=== PATIENT | male | born 1970 | race Caucasian/White ===

== ENCOUNTER 2024-01-02 20:48 | Emergency (ER) | payer MEDICAID, SELFPAY ==
--- NOTE | ~2024-01-02 | XR_ITS ---
EXAMINATION: XR CHEST CLINICAL INFORMATION: Shortness of breath. COMPARISON: Chest radiograph dated 12/16/2018. TECHNIQUE: 2 views of the chest were obtained. FINDINGS: Minimal patchy right midlung opacities which are new when compared to the prior examination and could represent atelectasis versus early infiltrates. No pleural effusion or pneumothorax. Stable cardiomediastinal silhouette. No acute osseous abnormality. XR/XR chest 2V IMPRESSION: Minimal patchy right midlung opacities which are new when compared to the prior examination and could represent atelectasis versus early infiltrates.
[2024-01-02 20:52] VITALS: BP 130/90; PULSE 116; O2SAT 96
--- NOTE | 2024-01-02 20:55 | ED_ITS ---
HPI - General Adult General Chief complaint: Upper Respiratory Symptoms Stated complaint: sick x2 weeks, fam has walking pneu, sob, cough Related Data Allergies Allergy/AdvReac Type Severity Reaction Status Date / Time codeine Allergy Unknown Verified 01/02/24 21:15 [facility] Social History Social History Advance Directives: No Advance Directives Information Provided: No Physical Exam ED Vital Signs: Vital Signs - 24 hr 01/02/24 21:16 Temperature 97.2 F Pulse Rate 103 H Respiratory Rate 18 Blood Pressure 120/88 Pulse Oximetry 94 Oxygen Delivery Method Room Air BMI result Body Mass Index 21.1 Course Course Course Narrative: This is a rapid medical exam: Additional HPI, ROS, PE not included below will be deferred to primary provider. Patient is a 53-year-old male with history of MIx2 with stents presenting to the emergency department via EMS with complaint of shortness of breath worse with coughing. States other family members at home are sick with ?walking pneumonia. ? Plan: EKG, labs, chest x-ray Discharge Plan Discharge Clinical Impression: Shortness of breath Patient Disposition: Left W/O Completing Treatment Discharge Date/Time: 01/03/24 00:42
[2024-01-02 21:16] VITALS: BP 120/88; PULSE 103; RESP 18; TEMP 36.2; O2SAT 94; BMI 21.1
--- OUTSIDE RECORDS SUMMARY | 2024-01-03 00:38 | XMS_ITS | Continuity of Care Document ---
Author Name Unknown Organization [facility] Address [address] [place] [address]- Care Team Providers Care Wood Cabinet Finisher Name Role Phone Jose Miguel Escamilla MD Primary Care Physician [phone] Encounter [facility] Date(s): 09/04/22 - 12/30/22 [facility] [address] [place] [address]- Attending Physician: Ro Perez NP Admitting Physician: Ro Perez NP Referring Physician: Jose Miguel Escamilla MD Allergies, Adverse Reactions, Alerts Substance Reaction Severity Status codeine Active Medications Aspirin Enteric Coated 81 mg oral delayed release tablet 1 tablet = 81 mg, By Mouth, Daily, # 90 tablet, 3 Refills, Maintenance, 08/29/22 11:03:00 EDT, [facility], Partial fill upon patient request if the prescription is for a schedule IIopioid drug., 168, cm, 08/29/22 10:08:00 EDT, Height, 5... Start Date: 08/29/22 Status: Ordered atorvastatin 80 mg oral tablet 1 tablet = 80 mg, By Mouth, Daily at bedtime, # 90 tablet, 3 Refills, Maintenance, 08/29/22 11:04:00 EDT, Tablet, [facility], Partial fill upon patient request if the prescription is for a schedule II opioid drug., 168, cm, 08/29/22 10:0... Start Date: 08/29/22 Status: Ordered carvedilol 3.125 mg oral tablet 3.125 mg, 1, tablet, By Mouth, 2 times a day, # 180 tablet, Refills 2, Tot. Refills 2, Maintenance,08/29/22 11:04:00 EDT, Route to Pharmacy Electronically, [facility], Partial fillupon patient request if the prescription is for a sched... Start Date: 08/29/22 Status: Ordered clopidogrel 75 mg oral tablet 75 mg, 1, tablet, By Mouth, Daily, # 90 tablet, Refills 3, Tot. Refills 3, Maintenance, 08/29/22 11:04:00 EDT, Route to Pharmacy Electronically, [facility], Partial fill upon patient request if the prescription is for a schedule II opioi... Start Date: 08/29/22 Status: Ordered omeprazole 20 mg oral delayed release tablet 1 tablet = 20 mg, By Mouth, Daily, # 90 tablet, 3 Refills, Maintenance, 08/29/22 11:05:00 EDT, CR Tablet, [facility], Partial fill upon patient request if the prescription is for a schedule II opioid drug., 168, cm, 08/29/22 10:08:00 EDT... Start Date: 08/29/22 Status: Ordered Social History Social History Type Response Smoking Status Current some day smo ker; Tobacco user in household: No; Type: Cigarettes entered on: 10/04/15 Sex Patient Care team information Care Team Personnel Name: Jose Miguel Escamilla MD Position: [facility] Outreach Member Role: PCP Address: Address: [address] [place] [address]- Name: Emelyn Iraheta RN Position: S RN Member Role: Primary Care Nurse Name: Linh Cuevas RN Position: S RN Supv Member Role: Primary Care Nurse Name: Elisabet Adan RN Position: S RN Member Role: Primary Care Nurse Care Team Related Persons Name: ADRIANA LAUGHLIN Address: home [address] [place] [address]
--- OUTSIDE RECORDS SUMMARY | 2024-01-03 00:39 | XMS_ITS | Patient Health Record ---
Author Name Unknown Organization [facility] Address [address], [place] [id number] Care Team Providers Care Cause Analyst Name Role Phone [facility] Primary Care Provide r Unavailable ALLERGIES Allergen (clinical drug ingredient) Drug/Non Drug Allergy documented on EMR Reaction Allergy Type Onset Date Status codeine codeine Unknown Drug Allergy Active REASON FOR REFERRAL No Information MEDICATIONS Medication SIG (Take, Route, Fr equency, Duration) Notes Start Date End Date Status Vistaril pamoate 25 mg 1 cap(s) orally 4 times a day for 30 day(s) 02/10/2014 Active PROzac 20 mg 1 cap(s) orally once a day for 30 day(s) 02/10/2014 Active SOCIAL HISTORY Tobacco Use: Social History Observation Description Date Details (start date - stop date) Current Smoker NA - NA Sex Assigned At : Social History Observation Description Sex Assigned At Unknown Tobacco Use Assessment MU Question Answer Notes What is your current smoking status? current smoker How often do you smoke? every day How many cigarettes a day do you smoke? 21-30 How soon after you wake up d o you smoke your first cigarette? 31-60 minutes Are you interested in quitting? thinking about q uitting quit a few years ago, resumed after 4 months. Quit cold turkey in past. Is working on cutting down Patient counseled on the carito reeds of tobacco use and advised to quit: 01/21/2014 PROBLEMS Problem Type ICD Code Onset Dates Problem Status W/U Status Risk SNOMED Code Notes Problem Depression with anxiety (300.4) Active confirmed Mixed anxiet y and depressive disorder (475127785) Problem Tobacco use disorder (305.1) Active confirmed Tobacco use (288862658) PLAN OF TREATMENT No Information Insurance Providers Payer Name Payer Address Payer Phone Subscriber Number Group Number Insured Name Patient Relationship to Insured Coverage Start Date Coverage End Date [facility] Plan [address] [address] [place] [address] [id number] Isrrael Sidhu Self - patient is the insured [place] Medicaid Standard [address] [place] [phone] [id number] Isrrael Sidhu Self - patient is the insured [facility] [address] [place] [address] Nahum Isrrael Self - patient is the insured MEDICAL (GENERAL) HISTORY Medical History History ICD Code ulcers Scarlet Fever and he almost MENTAL DISOR NOS OTH DIS Hospitalization History Reason Date(Month/Year) scarlet fever 2 yo
--- OUTSIDE RECORDS SUMMARY | 2024-01-03 00:39 | XMS_ITS | Continuity of Care Document ---
Author Name Unknown Organization [facility] ter Address [address] [place] [address]- Care Team Providers Care Smt Technician Name Role Phone Not on Staff, PCP Primary Care Physician Unavail able Encounter [facility] [place] Date(s): 10/16/23 - 10/16/[address] [address]- Discharge Disposition: A-D/C AMA Attending Physician: Richard Dumont MD Admitting Physician: Richard Dumont MD Referring Physician: Not on Staff, Referring MD Allergies, Adverse Reactions, Alerts Substance Reaction [...] 10:08:00 EDT... Start Date: 08/29/22 Status: Ordered Problem List Condition Confirmation Course Effective Dates Status Health St atus Informant Underweight Confirmed Active Results Radiology Reports * Exam Date Time Procedure Performing Provider Status 10/16/23 9:23 AM Chest 2 Views Frontal and Lat Yanique Santoyo; Auth (Verified) Notes: (Chest 2 Views Frontal and Lat) Reason For Exam: Chest Pain;Other: RESULT: Chest 2 Views Frontal and Lat Chest 2 Views Frontal and Lat Hx of Present Illness: chest pain x a few hours . history of PA with stents; Reason: Other:; Chest Pain; Clinical Question(s): Other: COMPARISON: 07/28/2022 FINDINGS: LINES AND TUBES: None. LUNGS AND PLEURA: Clear lungs. Normal pulmonary vascularity. No pleural effusion. No pneumothorax. HEART, MEDIASTINUM AND MING: Heart is normal in size. Coronary stents noted. Normal mediastinal and hilar contour. BONES AND SOFT TISSUES: No acute abnormality. IMPRESSION: No acute abnormality. WSN: [id number] Ordering Physician: Myke Chery Dictated By: Messi Lugo MD Dictated Date/Time: 10/16/23 9:48 am Reviewed By: Messi Lugo MD Signed By: Messi Lugo MD Signed Date/Time: 10/16/23 9:48 am Transcribed By: DORIAN Transcribed Date/Time: 10/16/23 9:43 am Vital Signs Most recent to oldest [Reference Range]: 1 2 3 Height 168 cm (10/16/23 2:57 PM) 168 cm (10/16/23 2:44 PM) 168 cm (10/16/23 11:49 AM) Weight 50 kg (10/16/23 2:57 PM) Oxygen Saturation [94-100 %] 95 % (10/16/23 2:44 PM) 97 % (10/16/23 11:52 AM) 98 % (10/16/23 11:49 AM) Pulse Rate [55-90 bpm] 70 bpm (10/16/23 2:57 PM) 70 bpm (10/16/23 2:44 PM) 79 bpm (10/16/23 11:52 AM) Body Mass Index [18.5-24.99 kg/m2] 17.72 kg/m2 *L* (10/16/23 2:57 PM) Blood Pressure [90-138/55-84 mm Hg] 131/114mm Hg (10/16/23 2:57 PM) 131/114mm Hg (10/16/23 2:44 PM) 111/82mm Hg (10/16/23 11:52 AM) Respiratory Rate [16-30 br/min] 18 br/min (10/16/23 2:57 PM) 18 br/min (10/16/23 2:44 PM) 18 br/min (10/16/23 11:52 AM) Temperature [96.8-100.4 DegF] 97.6 DegF (10/16/23 2:57 PM) 97.6 DegF (10/16/23 2:44 PM) 98.7 DegF (10/16/23 11:52 AM) Mode of Delivery (Oxygen) Room air (10/16/23 2:44 PM) Room air (10/16/23 11:52 AM) Room air (10/16/23 11:49 AM) Blood pressure sites Arm, right (10/16/23 2:57 PM) Arm, right (10/16/23 2:44 PM) Arm, left (10/16/23 11:52 AM) Temperature Route Oral (10/16/23 2:57 PM) Oral (10/16/23 2:44 PM) Oral (10/16/23 11:52 AM) Dry Weight 50 kg (10/16/23 2:57 PM) 50 kg (10/16/23 11:49 AM) 50 kg (10/16/23 8:10 AM) Weight Obtained Via Patient/family state d (10/16/23 2:57 PM) Dry Weight Obtained Via Patient/family s tated (10/16/23 8:10 AM) Social History Social History Type Response Smoking Status Current some day smo ker; Tobacco user in household: No; Type: Cigarettes entered on: 10/04/15 Sex Admission evaluation note * Richard Dumont MD: PERFORM Event Display: Admission Note Authored Date: [id number] Patient: ??MEENA LAUGHLIN ? Age:??52 Years?Sex:??Male?:??1970?? History of Present Illness 52 M with CAD s/p multiple MIs, HFrEF presents??with chest pain. ?? Pain started??this morning, difficult to characterize but reminded him of prior PA pain, pain has been constant since onset.??No associated shortness of breath, dizziness, nausea, vomiting. ??He does endorse an intermittent dry smoker's cough that began yesterday, but denies fever, chills, nasal congestion, rhinorrhea, sore throat or headache. ??No pain or swelling in his legs. ??No personalor family history of blood clots. ??Patient was given 2 doses of sublingual nitroglycerin by EMS, after the second dose he felt chills and had a witnessed syncopal event. ?? Of note patient ran out of his clopidogrel 3 days ago. ?? Of note, he had bare metal stent to proximal LAD in 2014, admitted 07/2022 with inferior STEMI with??culprit lesions in the RCA and he received 2 stents, a 2.5 x 12 mm??(Xience) in the distal RCA, dimas 2.75 x 34 mm??(Lester) in the mid RCA.??Echocardiogram revealed LVEF 35%. ?? In the ED: Afebrile??BP 89/62 HR 69 CBC and basica chemistry unremarkable Trop neg x2 BNP < 36 EKG without ischemia CXR negative He was given asa 324 and admitted ?? ROS: As above, rest of full review negative. ?? Social: Lives independently Objective Temperature?97.6 ?(15:00) Systolic Blood Pressure?131 ?(15:00) Diastolic Blood Pressure?114 ?(15:00) Pulse?70 ?(15:00) SpO2?95 ?(14:46) Respiratory Rate?18 ?(15:00) ?? Physical Exam GEN: Comfortable in bed HEENT: Moist membranes HEART: Warm extremities LUNGS: Breathing comfortably room air ABD: Soft, nontender : No hwang EXT: Warm, no edema NEURO: Alert, oriented x3 PSYCH: Calm and cooperative ? ECHO 08/09: Summary ??The left ventricular size is normal. Left ventricular wall thickness is ??normal. The left ventricular ejection fraction is 35-40%. There is mild ??global hypokinesis of the left ventricle. Inferobasilar and basilar ??inferolateral akinesis. Mid/basilar septal akinesis. There is no doppler ??evidence of increased filling pressures. ??The aortic valve is probably trileaflet . There is no aortic stenosis. There ??is mild aortic regurgitation. ??The right ventricle is poorly visualized. ??Right ventricular systolic function appears preserved. ??There is no significant pericardial effusion. ?? Assessment/Plan 52 M with CAD s/p multiple MIs, HFrEF presents??with chest pain. ?? CAD in [place] artery (I25.10):?? Chest pain (R07.9):? Suggestive chest pain with high risk history. Trops and EKG negative. Ran out of Plavix, active smoker, has been lost to followup. - nuclear stress ordered - [employer] consulted electronicall - cont asa and Plavix, statin, carvedilol ?? CHF with??EF 35-40%??(I50.9):?? Appears euvolemic. - cont carvedilol ? DIET -regular CODE - full DVT - low risk?? Histories Past Medical History/Problem List Active Problems??(1) Underweight ? Medications Home Medications Aspirin (Aspirin Enteric Coated 81 mg oral delayed release tablet)?1?tab(s)?81?Milligram?By Mouth?Daily Atorvastatin (atorvastatin 80 mg oral tablet)?1?tab(s)?80?Milligram?By Mouth?Daily at bedtime Carvedilol (carvedilol 3.125 mg oral tablet)?3.125?Milligram?1?tablet?By Mouth?2 times a day Clopidogrel (clopidogrel 75 mg oral tablet)?75?Milligram?1?tablet?By Mouth?Daily Omeprazole (omeprazole 20 mg oral delayed release tablet)?1?tab(s)?20?Milligram?By Mouth?Daily ? EKG study * Event Display: ECG 12-Lead Authored Date: Please click on pdf link to open report * Event Display: ECG 12-Lead Authored Date: Ventricular Rate: 61 BPM Atrial Rate: 61 BPM P-R Interval: 146 ms QRS Duration: 76 ms Q-T Interval: 402 ms QTC Calculation(Bazett): 404 ms P [place]: 69 degrees R [place]: 67 degrees T [place]: 69 degrees Normal sinus rhythm Normal ECG When compared with ECG of 16-OCT-2023 08:08, MANUAL COMPARISON REQUIRED, DATA IS UNCONFIRMED Confirmed by ANGELICA LIZAMA MD ([id number]) on 10/16/2023 1:44:36 PM [place]: ANGELICA LIZAMA MD * Event Display: ECG 12-Lead Authored Date: Please click on pdf link to open report * Event Display: ECG 12-Lead Authored Date: Ventricular Rate: 69 BPM Atrial Rate: 69 BPM P-R Interval: 152 ms QRS Duration: 70 ms Q-T Interval: 384 ms QTC Calculation(Bazett): 411 ms P [place]: 61 degrees R [place]: 69 degrees T [place]: 69 degrees Normal sinus rhythm Septal infarct , age undetermined Abnormal ECG When compared with ECG of 29-JUL-2022 15:25, No significant change was found Confirmed by ANGELICA LIZAMA MD ([id number]) on 10/16/2023 1:43:55 PM [place]: ANGELICA LIZAMA MD [facility] Progress note * Berna Baptiste RN: PERFORM, SIGN, VERIFY Event Display: Progress Note Hospital Authored Date: Patient: MEENA LAUGHLIN Age: 52 years Sex: Male : 1970 Associated Diagnoses: None Author: Berna Baptiste RN Findings Narrative/Incidental Patietn admitted to unit. Oriented to room and call light. Denies any chest pain or discomfort at this time Tele with SR.. Note * Richard Dumont MD: PERFORM Event Display: Discharge/Transfer Note Hospital Authored Date: Patient: ??MEENA LAUGHLIN ? Age:??52 Years?Sex:??Male?:??1970?? The patient eloped from [place] [facility] prior to receiving stress test or obtaining a refill of his Plavix. * Slim Oliver RN: PERFORM Event Display: Discharge/Transfer Note Hospital Authored Date: Nursing Discharge Note Entered On: 10/16/2023 16:37 EST Performed On: 10/16/2023 16:36 EST by Slim Oliver RN Nursing Discharge Note 2 Discharge Time : 10/16/2023 16:13 EST Discharge Level of Care at Discharge : Left Against Medical Advice Patient Left Unit Via : Ambulatory Patient Accompanied Off Unit with : Responsible adult DC Instructions Provided & Signed by Pt : No Patient Understands D/C Instructions : No Patient Instructions Discharge Signed : No Did Pt have Specialty Bed or Wound Vac : No Slim Oliver RN - 10/16/2023 16:36 EST Patient Care team information Care Team Personnel Name: Slim Oliver RN Position: S RN Member Role: Primary Care Nurse Name: Not on Staff, PCP Position: [facility] Physician (General Medicine) Member Role: PCP Name: Elisabet Adan RN Position: [facility] RN Member Role: Primary Care Nurse Name: *Telly HEATH Attending Position: [facility] ED Medicine MD Name: Dave Andrew Position: [facility] Associate Professional Member Role: ED Physician Bulk Plant Supervisor Address: Address: [address] [place] [address] Emergency [place], [place] [address] Name: Margareth Frey Position: [facility] ED TA [facility] Member Role: Grocery Deliverer Name: Daisha Celestin RN Position: [facility] ED RN W/OE and Tasks Member Role: Patient Care Provider Care Team Related Persons Name: TRUMAN ADRIANA Address: [address] [address]
--- OUTSIDE RECORDS SUMMARY | 2024-01-03 00:39 | XMS_ITS | Continuity of Care Document ---
Author Name Unknown Organization [facility] ter Address [address] [place] [address]- Care Team Providers Care Four Slide Machine Setter Name Role Phone Jose Miguel Escamilla MD Primary Care Physician [phone] Encounter [facility] Date(s): 07/28/22 - 07/30/[address] [address]- Encounter Diagnosis Non-STEMI (non-ST elevated myocardial infarction)(Final) - 07/28/22 Non-STEMI (non-ST elevated myocardial infarction)(Final) - 07/28/22 Discharge Disposition: A-D/C Home Attending Physician: Richard Leggett MD Admitting Physician: Richard Leggett MD Referring Physician: Not on Staff, Referring MD Allergies, Adverse Reactions, Alerts Substance Reaction Severity Status codeine Active Medications Aspirin Enteric Coated 81 mg oral delayed release tablet 1 tablet = 81 mg, By Mouth, Daily, # 30 tablet, 0 Refills, Maintenance, 07/30/22 12:27:00 EDT, [facility], Partial fill upon patient request if the prescription is for a schedule IIopioid drug., 168, cm, 07/30/22 2:46:00 EDT, Height, 55... Start Date: 07/30/22 Status: Ordered atorvastatin 80 mg oral tablet 1 tablet = 80 mg, By Mouth, Daily at bedtime, # 30 tablet, 0 Refills, Maintenance, 07/30/22 12:28:00 EDT, Tablet, [facility], Partial fill upon patient request if the prescription is for a schedule II opioid drug., 168, cm, 07/30/22 2:46... Start Date: 07/30/22 Status: Ordered carvedilol 3.125 mg oral tablet 3.125 mg, 1, tablet, By Mouth, 2 times a day, # 60 tablet, Refills 0, Tot. Refills 0, Maintenance, 07/30/22 12:28:00 EDT, Route to Pharmacy Electronically, [facility], Partial fill upon patient request if the prescription is for a schedu... Start Date: 07/30/22 Status: Ordered clopidogrel 75 mg oral tablet 75 mg, 1, tablet, By Mouth, Daily, # 30 tablet, Refills 0, Tot. Refills 0, Maintenance, 07/30/22 12:31:00 EDT, Route to Pharmacy Electronically, [facility], Partial fill upon patient request if the prescription is for a schedule II opioi... Start Date: 07/30/22 Status: Ordered omeprazole 20 mg oral delayed release tablet 1 tablet = 20 mg, By Mouth, Daily, # 30 tablet, 0 Refills, Maintenance, 07/30/22 12:29:00 EDT, CR Tablet, [facility], Partial fill upon patient request if the prescription is for a schedule II opioid drug., 168, cm, 07/30/22 2:46:00 EDT,... Start Date: 07/30/22 Status: Ordered Results Radiology Reports * Exam Date Time Procedure Performing Provider Status 07/28/22 3:05 PM Chest Portable Leah Payne; Pelon h (Verified) Notes: (Chest Portable) Reason For Exam: Chest Pain;Other: RESULT: Chest Portable AP upright portable chest dated July 28, 2022 at 1458 hours. Comparison films are from March 04, 2019. HISTORY: Chest pain. FINDINGS: The cardiac silhouette is within normal limits for size. Hilar and mediastinal structuresare unremarkable. No airspace infiltrate or pleural effusion is identified. Visualized osseous structures are unremarkable. IMPRESSION: No evidence of acute pulmonary disease. Examination 90[address]. Thank you for allowing me to participate in the care of this patient. WSN: [id number] Ordering Physician: Kait Aaron Dictated By: Bunny Gomez MD Dictated Date/Time: 07/28/22 3:18 pm Reviewed By: Bunny Gomez MD Signed By: Bunny Gomez MD Signed Date/Time: 07/28/22 3:18 pm Transcribed By: DORIAN Transcribed Date/Time: 07/28/22 3:18 pm Vital Signs Most recent to oldest [Reference Range]: 1 2 3 Height 168 cm (07/30/22 2:46 AM) 168 cm (07/29/22 7:45 PM) 168 cm (07/29/22 3:19 PM) Weight 57.8 kg (07/30/22 2:46 AM) 59.3 kg (07/29/22 4:48 AM) 58 kg (07/28/22 8:06 PM) Oxygen Saturation [94-100 %] 97 % (07/30/22 7:00 AM) 98 % (07/30/22 2:46 AM) 98 % (07/29/22 7:45 PM) Pulse Rate [55-90 bpm] 82 bpm (07/30/22 7:00 AM) 72 bpm (07/30/22 2:46 AM) 65 bpm (07/29/22 7:45 PM) Body Mass Index [18.5-24.99] 20.48 (07/30/22 2:46 AM) 20.55 (07/28/22 8:06 PM) Blood Pressure [90-138/55-84 mm Hg] 123/98mm Hg (07/30/22 7:00 AM) 128/71mm Hg (07/30/22 2:46 AM) 117/95mm Hg (07/29/22 7:45 PM) Respiratory Rate [16-30 br/min] 18 br/min (07/30/22 7:00 AM) 20 br/min (07/30/22 2:46 AM) 20 br/min (07/29/22 7:45 PM) Temperature [96.8-100.4 DegF] 97.8 DegF (07/30/22 7:00 AM) 97.6 DegF (07/30/22 2:46 AM) 97.7 DegF (07/29/22 7:45 PM) Mode of Delivery (Oxygen) Room air (07/30/22 7:00 AM) Room air (07/30/22 2:46 AM) Room air (07/29/22 7:45 PM) Blood pressure sites Arm, right (07/30/22 7:00 AM) Arm, right (07/30/22 2:46 AM) Arm, right (07/29/22 7:45 PM) Temperature Route Oral (07/30/22 7:00 AM) Oral (07/30/22 2:46 AM) Oral (07/29/22 7:45 PM) Dry Weight 55 kg (07/28/22 8:06 PM) Weight Obtained Via Bed scale (07/30/22 2:46 AM) Bed scale (07/29/22 4:48 AM) Bed scale (07/28/22 8:06 PM) Dry Weight Obtained Via Patient/family s tated (07/28/22 8:06 PM) Social History Social History Type Response Smoking Status Current some day smo ker; Tobacco user in household: No; Type: Cigarettes entered on: 10/04/15 Sex Portable XR Chest Views * BHSPowerscribe , CIS S: TRANSCRIBE Bunny Gomez MD: VERIFY Event Display: Result: Authored Date: [id number] AP upright portable chest dated July 28, 2022 at 1458 hours. Comparison films are from March 04, 2019. HISTORY: Chest pain. FINDINGS: The cardiac silhouette is within normal limits for size. Hilar and mediastinal structuresare unremarkable. No airspace infiltrate or pleural effusion is identified. Visualized osseous structures are unremarkable. IMPRESSION: No evidence of acute pulmonary disease. Examination 54272. Thank you for allowing me to participate in the care of this patient. WSN: [id number] Ordering Physician: Kait Aaron Dictated By: Bunny Gomez MD Dictated Date/Time: 07/28/22 3:18 pm Reviewed By: Bunny Gomez MD Signed By: Bunny Gomez MD Signed Date/Time: 07/28/22 3:18 pm Transcribed By: DORIAN Transcribed Date/Time: 07/28/22 3:18 pm Care Team Personnel Name: Jose Miguel Escamilla MD Address: [address] [place] [address]
--- OUTSIDE RECORDS SUMMARY | 2024-01-03 00:39 | XMS_ITS | Continuity of Care Document ---
Author Name Unknown Organization [facility] Address [address] [place] [id number]- Care Team Providers Care Laundry Machine Tender Name Role Phone Jose Miguel Escamilla MD Primary Care Physician Encounter [facility] Date(s): 11/29/22 - 01/05/23 [facility] [address] [place] [id number]- Attending Physician: Dallas Solo NP Admitting Physician: Dallas Solo NP Referring Physician: Jose Miguel Escamilla MD [...] Personnel Name: Jose Miguel Escamilla MD Position: [facility] Outreach Member Role: PCP Address: Address: [address] [place] [phone]- Name: Emelyn Iraheta RN Position: S RN Member Role: Primary Care Nurse Name: Linh Cuevas RN Position: S RN Supv Member Role: Primary Care Nurse Name: Elisabet Adan RN Position: S RN Member Role: Primary Care Nurse Care Team Related Persons Name: ADRIANA LAUGHLIN Address: home [address] [place] [id number]
--- OUTSIDE RECORDS SUMMARY | 2024-01-03 00:39 | XMS_ITS | Continuity of Care Document ---
Author Name Unknown Organization [facility] Address [address] [place] [id number]- Care Team Providers Care International Marketing Manager Name Role Phone Jose Miguel Escamilla MD Primary Care Physician [place] [facility] [place]/23 [facility] [address] [place] [id number]- Attending Physician: Adeline Myers Admitting Physician: Adeline Myers Referring Physician: AdmtrAdeline Allergies, Adverse Reactions, Alerts Substance Reaction Severity [...] No; Type: Cigarettes entered on: 10/04/15 Sex Note * Event Display: Cardiovascular Result Scanned Authored Date: * Event Display: Non BH Lab Results Authored Date: * Event Display: Non BH Lab Results Authored Date: Patient Care team information Care Team Personnel Name: Jose Miguel Escamilla MD Position: [facility] Outreach Member Role: PCP Address: Address: [address] [place] [phone]- Name: Emelyn Iraheta RN Position: S RN Member Role: Primary Care Nurse Name: Linh Cuevas RN Position: S AVA Supv Member Role: Primary Care Nurse Name: Elisabet Adan RN Position: S RN Member Role: Primary Care Nurse Care Team Related Persons Name: ADRIANA LAUGHLIN Address: [address] [address]
== END 2024-01-03 00:42 | disposition left against medical advice (07) ==
LOC: HO.ED 01-03 00:36
PROVIDERS: Emergency Provider Emergency Medicine
DX: R06.02 Shortness of breath (principal); R05.9 Cough, unspecified
CPT/HCPCS: 71046; 99281; 99283

== ENCOUNTER 2025-04-14 05:06 | Emergency (ER) | payer MEDICAID, SELFPAY ==
--- NOTE | 2025-04-14 | ECG_ITS ---
Test Reason : CP Blood Pressure : */* mmHG Vent. Rate : 97 BPM Atrial Rate : 97 BPM P-R Int : 160 ms QRS Dur : 80 ms QT Int : 328 ms P-R-T Axes : 53 63 62 degrees QTcB Int : 416 ms Normal sinus rhythm Normal ECG When compared with ECG of 16-Dec-2018 20:28, No significant change was found Referred By: Generic ED Physician Electronically Signed By:
--- NOTE | ~2025-04-14 | XR_ITS ---
CLINICAL HISTORY: cp 1 view chest x-ray Comparison: CR/[place]/SR - XR CHEST 2V - 01/02/24 21:02 EST Findings: The lungs are clear. Normal size heart. No acute fracture. IMPRESSION: 1. No acute findings. This document has been electronically signed by: Aline Duron MD on 04/14/2025 08:46:39
[2025-04-14 05:07] VITALS: BP 120/90; BP 136/90; PULSE 101; PULSE 120; RESP 17; TEMP 36.8; O2SAT 92; O2SAT 95; BMI 23.8
[2025-04-14 05:34] LABS: MANUAL DIFF FLAG NO
[2025-04-14 05:47] LABS: Basophils Percent Auto 0.3 % (0-2); Hematocrit 49.9 % (42.0-52.0); Hemoglobin 17.3 g/dl (14.0-18.0); Imm Gran Abs Auto 0.02 X10*3/uL (0.00-0.03); Imm Gran Pct Auto 0.5 % (0.0-0.4); Lymphocytes Absolute Auto 0.2 X10*3/uL (1.2-4.9); Lymphocytes Percent Auto 6.4 % (20-40); Mean Corpuscular HGB Conc 34.7 g/dl (31.0-36.0); Mean Corpuscular Hemoglobin 30.5 pg (27.0-33.0); Mean Corpuscular Volume 87.9 fL (80.0-98.0); Mean Platelet Volume 9.6 fL (9.4-12.4); Monocytes Absolute Auto 0.6 X10*3/uL (0.1-1.2); Monocytes Percent Auto 14.9 % (2-11); Neutrophils Absolute Auto 2.9 x10*3/uL (2.0-8.3); Neutrophils Percent Auto 77.9 % (45-73); Platelet Count 180 X10*3/uL (160-400); Red Blood Count 5.68 X10*6/uL (4.60-5.80); Red Cell Distribution Width 12.3 % (11.0-16.0); White Blood Count 3.8 X10*3/uL (4.8-10.8)
[2025-04-14 05:56] LABS: Troponin-I High Sensitivity 4.6 ng/L (<3.5-35.0)
[2025-04-14 05:58] LABS: Alanine Aminotransferase 31 U/L (0-40); Albumin Level 4.6 g/dL (3.5-5.0); Alkaline Phosphatase 116 U/L (39-117); Anion Gap 17 (12-20); Aspartate Amino Transferase 23 U/L (5-37); Bilirubin Total 0.6 mg/dL (0.0-1.0); Blood Urea Nitrogen 9 mg/dL (9-16); Calcium 9.2 mg/dL (8.4-10.2); Carbon Dioxide 23 mmol/L (22-29); Chloride 100 mmol/L (96-108); Creatinine Clr Calc Pharmacy 84.6; Estimated Glomerular Filt Rate > 60; Glucose Random 104 mg/dL (60-115); Potassium 3.8 mmol/L (3.3-5.1); Sodium 136 mmol/L (135-145); Total Protein 7.3 g/dL (6.5-8.0)
[2025-04-14 06:11] LABS: Influenza A PCR NEGATIVE (Negative); Influenza B PCR NEGATIVE (Negative); Resp Syncy Virus RNA Qual PCR NEGATIVE (Negative); SARS COV2 PCR INHOUSE POSITIVE (Negative)
--- OUTSIDE RECORDS SUMMARY | 2025-04-14 06:29 | XMS_ITS | Continuity of Care Document ---
Author Organization [facility] Address [address] [place] [phone]- Care Team Providers Care Hack Driver Name Role Phone Not on Staff, PCP Primary Care Physician Unavail able Encounter [facility] [place] Date(s): 04/08/25 - 04/08/[address] [phone]- Encounter Diagnosis Chest pain(Final) - 04/09/25 Discharge Disposition: A-D/C Home Attending Physician: Teo Chun MD Admitting Physician: Teo Chun MD Referring Physician: Not on Staff, Referring MD Encounter Type: Disch ES Allergies, Adverse Reactions, Alerts Substance Criticality Severity Reaction Reaction Severity Status codeine Active Medications Aspirin Enteric Coated 81 mg oral delayed release tablet 1 tablet = 81 mg, By Mouth, Daily, MUST ATTEND 05/27/24 APPT FOR MORE REFILLS, # 14 tablet, 0 Refills, Maintenance, 05/14/24 12:36:00 PM EDT, [facility], Partial fill upon patient request if the prescription is for a schedule II opioid drug., 168, cm, 10/16/23 14:57:00 EST, Height, 50, kg, 10/16/23 14:57:00 EST, Dry Weight Start Date: 05/14/24 Stop Date: 05/28/24 Status: Ordered Quantity: 14.0 Unit: tablet Repeat number: 1 atorvastatin 80 mg oral tablet 1 tablet = 80 mg, By Mouth, Daily at bedtime, MUST ATTEND 05/27/24 APPT FOR MORE REFILLS, # 14 tablet, 0 Refills, Maintenance, 05/14/24 12:40:00 PM EDT, Tablet, [facility], Partial fill upon patient request if the prescription is for a schedule II opioid drug., 168, cm, 10/16/23 14:57:00 EST, Height, 50, kg, 10/16/23 14:57:00 EST, Dry Weight Start Date: 05/14/24 Stop Date: 05/28/24 Status: Ordered Quantity: 14.0 Unit: tablet Repeat number: 1 carvedilol 6.25 mg oral tablet 6.25 mg, 1, tablet, By Mouth, 2 times a day, # 180 tablet, Refills 0, Tot. Refills 0, Maintenance, 05/27/24 3:40:00 PM EDT, Route to Pharmacy Electronically, [facility], Partial fillupon patient request if the prescription is for a schedule II opioid drug., 168, cm, 05/27/24 15:17:00 EDT, Height, 50, kg, 10/16/23 14:57:00 EST, Dry Weight Start Date: 05/27/24 Status: Ordered Quantity: 180.0 Unit: tablet Repeat number: 1 lisinopril 2.5 mg oral tablet 2.5 mg, 1, tablet, By Mouth, Daily, # 90 tablet, Refills 0, Tot. Refills 0, Maintenance, 05/27/24 3:40:00 PM EDT, Route to Pharmacy Electronically, [facility], Partial fill upon patient request if the prescription is for a schedule II opioid drug., 168, cm, 05/27/24 15:17:00 EDT, Height, 50, kg, 10/16/23 14:57:00 EST, Dry Weight Start Date: 05/27/24 Status: Ordered Quantity: 90.0 Unit: tablet Repeat number: 1 omeprazole 20 mg oral delayed release tablet 1 tablet = 20 mg, By Mouth, Daily, # 90 tablet, 3 Refills, Maintenance, 08/29/22 11:05:00 AM EDT, CR Tablet, [facility], Partial fill upon patient request if the prescription is fora schedule II opioid drug., 168, cm, 08/29/22 10:08:00 EDT, Height, 55, kg, 07/28/22 20:09:00 EDT, Dry Weight Start Date: 08/29/22 Status: Ordered Quantity: 90.0 Unit: tablet Repeat number: 4 Results Radiology Reports * Exam Date Time Procedure Performing Provider Status 04/08/25 8:57 PM Chest 2 Views Frontal and Lat Houston Isak; Auth (Verified) Notes: (Chest 2 Views Frontal and Lat) Reason For Exam: Chest Pain;Other: RESULT: Chest 2 Views Frontal and Lat Chest 2 Views Frontal and Lat Hx of Present Illness: Chest Pain--Pt reports intermittent, left sided CP, nonradiating that started around 1500 this afternoon. History of HI and stent placement.; Reason: Other:; Chest Pain; Clinical Question(s): Other: COMPARISON: 10/16/2023 FINDINGS: LINES AND TUBES: None. LUNGS AND PLEURA: Elevated right hemidiaphragm. Clear lungs. Normal pulmonary vascularity. No pleural effusion. No pneumothorax. HEART, MEDIASTINUM AND MING: Heart is normal in size. Normal mediastinal and hilar contour. BONES AND SOFT TISSUES: No acute abnormality. IMPRESSION: No acute abnormality. WSN: [id number] Ordering Physician: Theodore Haider Dictated By: Lalo Julian MD Dictated Date/Time: 04/08/25 9:07 pm Reviewed By: Lalo Julian MD Signed By: Lalo Julian MD Signed Date/Time: 04/08/25 9:07 pm Transcribed By: DORIAN Transcribed Date/Time: 04/08/25 9:06 pm Vital Signs Most recent to oldest [Reference Range]: 1 2 Height 168 cm (04/08/25 7:22 PM) Weight 63 kg (04/08/25 7:22 PM) Oxygen Saturation [94-100 %] 99 % (04/08/25 7:52 PM) 99 % (04/08/25 7: PM) Pulse Rate [55-90 bpm] 79 bpm (04/08/25 7:52 PM) 70 bpm (04/08/25 7:22 PM) Body Mass Index [18.5-24.99 kg/m2] 22.32 kg/m2 (04/08/25 7:22 PM) Blood Pressure [90-138/55-84 mm Hg] 171/ 93mm Hg *H* (04/08/25 7:52 PM) 147/101mm Hg *H* (04/08/25 7:22 PM) Respiratory Rate [16-30 br/min] 18 br/mi n (04/08/25 7:22 PM) Temperature [96.8-100.4 DegF] 97.8 DegF (04/08/25 7:52 PM) 97.5 DegF (04/08/25 7:22 PM) Mode of Delivery (Oxygen) Room air (04/08/25 7:52 PM) Room air (04/08/25 7:22 PM) Blood pressure sites Arm, left (04/08/25 7:52 PM) Arm, left (04/08/25 7:22 PM) Temperature Route Oral (04/08/25 7:52 PM) Oral (04/08/25 7:22 PM) Dry Weight 63 kg (04/08/25 7:22 PM) Weight Obtained Via Standing scale (04/08/25 7:22 PM) Dry Weight Obtained Via Standing scale (04/08/25 7:22 PM) Social History Social History Type Response Smoking Status Current some day smo ker; Tobacco user in household: No; Type: Cigarettes entered on: 10/04/15 Sex Sex Representation Male (finding) Note * Luis Rubio DO: PERFORM Event Display: Patient Education Leaflets Authored Date: Uncertain Causes of Chest Pain ?? [id number] Uncertain Causes of Chest Pain Chest pain can happen for a number of reasons. Sometimes the cause can't be found. If you've been checked by your health care provider and your??condition does not seem serious, and if your pain doesnot appear to be coming from your heart, your provider may recommend closely watching for any symptoms. Sometimes the signs of a serious problem take more time to appear. Many problems not related toyour heart can cause chest pain, such as: ??? Musculoskeletal problems. These include costochondritis (an inflammation of the tissues around the ribs that can occur from trauma or overuse injuries) and a strain of the chest wall muscles. ???Respiratory problems. These include pneumonia, collapsed lung (pneumothorax), and inflammation of the lining of the chest and lungs (pleurisy). ??? Gastrointestinal problems. These include esophagealreflux, heartburn, ulcers, and gallbladder disease. ??? Anxiety and panic disorders. ??? Nerve compression and inflammation. ??? Rare problems, such as aortic aneurysm or aortic dissection (a swelling of the large artery coming out of the heart or a tear in the wall of the artery), and pulmonary embolism (a blood clot in the lungs). Home care After your visit, make sure to: ??? Rest today, and stay away from strenuous activity. ??? Take anyprescribed medicine as directed. ??? Be aware of any chest pain that comes back, and notice any changes. ?? Follow-up care Follow up with your health care provider if you don't start to feel better within 24 hours, or as advised. ?? Call 911 Call 911 if you have: ??? A change in the type of pain. It may feel different, become more severe, last longer, or begin to spread into your shoulder, arm, neck, jaw, or back. ??? Shortness of breathor increased pain with breathing. ??? Weakness, dizziness, or fainting. ??? A rapid heartbeat. ??? A crushing feeling in your chest. ??? Coughing up more than a small amount of blood. ?? When to get medical advice Call your health care provider or get medical care right away if you have: ??? A cough with dark colored sputum (phlegm) or small amount of blood. ??? A fever of 100.4??F??(38??C) or higher, or as directed by your provider. ??? Swelling, pain, or redness in one leg. ?? Last Reviewed Date: 2024 00:00:00 ?? [id number] [employer]. All rights reserved. This information is not intended as a substitute for professional medical care. Always follow your healthcare professional's instructions. ?? Patient Care team information Care Team Personnel Name: Slim Oliver RN Position: S RN Member Role: Primary Care Nurse Name: Not on Staff, PCP Position: S Physician (General Medicine) Member Role: PCP Name: Elisabet Adan RN Position: S RN Member Role: Primary Care Nurse Care Team Related Persons Name: BILLY ARANGO Name: ADRIANA LAUGHLIN Insurance Providers Guarantor name: NA Health Plan Information #: 1 Payer: [employer] Member Number: [id number] Policy Number: NA Group Number: NA Health Plan Information #: 2 Payer: SEL[employer] INSURANCE Member Number: [id number] Policy Number: NA Group Number: NA
[2025-04-14 06:48] VITALS: BP 132/85; PULSE 98; RESP 13; TEMP 37; O2SAT 95
--- NOTE | 2025-04-14 07:47 | PC.NURSE ---
patient a&ox3, c/o headache 10/10 pain, monitor and storage bin tender sinus tach, vitals otherwise stable, rr equal/non labored, call reeder within reach, pt awaiting eval from provider.
[2025-04-14 07:48] VITALS: BP 142/82; PULSE 100; RESP 16; TEMP 37; O2SAT 94
--- NOTE | 2025-04-14 08:12 | ED.GENADULT ---
HPI - General Adult General Chief complaint: Nausea/Vomiting/Diarrhea Stated complaint: COVID Time Seen by Provider: 04/14/25 07:33 Source: patient and RN notes reviewed Mode of arrival: ambulatory Limitations: no limitations History of Present Illness ED Provider: Unique Powell PA-C HPI narrative: This is a 54-year-old male, with a past medical history of coronary artery disease with 2 MIs with stent placement on carvedilol and aspirin, who presents emergency department with concerns for body aches, headache, chills, cough, nausea and vomiting which started 5 days ago. Patient reports that he took a COVID test at home which was positive 2 days ago. He states that he has never been vaccinated for COVID in the past. He reports that on Saturday he went to [employer] as he was experiencing chest pain, states that he was observed for several hours and was discharged home. He believes that this is where he contracted the virus. He denies any current chest pain, shortness for breath, palpitations, abdominal pain, urinary symptoms. Denies any constipation or diarrhea. No other complaints or concerns at this time. MD complaint: Cough, headache, body aches Onset (ago): day(s) Quality: aching Pain Consistency: constant Relieving factors: medication Exacerbating factors: none Associated symptoms: cough, fever/chills, headaches, loss of appetite and nausea/vomiting Treatments prior to arrival: none Related Data Previous Rx's ?Medication ?Instructions ?Recorded acetaminophen 500 mg tablet 500 - 1,000 mg (1 - 2 x 500 mg) PO 04/14/25 (Tylenol Extra Strength) Q8H #30 tabs benzonatate 100 mg capsule 100 mg PO TID 7 days #21 caps 04/14/25 ondansetron HCl 4 mg tablet 4 mg PO Q6H PRN nausea and 04/14/25 vomiting #12 tabs Allergies Allergy/AdvReac Type Severity Reaction Status Date / Time codeine Allergy Unknown Verified 04/14/25 05:09 Review of Systems Review of Systems: Yes all other systems are reviewed and are negative Constitutional: Constitutional: Reports as per HPI [facility] Social History Social History Smoked in Last 30 Days: Yes Use of substances other than those prescribed or required for medical reasons: No Advance Directives: No Advance Directives Information Provided: Yes Do you have a plan to hurt others: No Plan Physical Exam ED Vital Signs: Vital Signs - 24 hr 04/14/25 05:07 04/14/25 06:48 04/14/25 07:48 Temperature 98.2 F 98.6 F 98.6 F Pulse Rate 101 H 98 100 Respiratory Rate 17 13 16 Blood Pressure 136/90 H 132/85 142/82 H Pulse Oximetry 95 95 94 Oxygen Delivery Method Room Air Room Air 04/14/25 10:03 04/14/25 11:07 Temperature 98.4 F 98.2 F Pulse Rate 85 88 Respiratory Rate 14 16 Blood Pressure 121/82 122/88 Pulse Oximetry 95 95 Oxygen Delivery Method Room Air Room Air BMI result Body Mass Index 23.8 Const General: cooperative, comfortable and no acute distress Orientation/consciousness: patient oriented x3 Limitations: no limitations HENMT Head: Yes normal to inspection, Yes normocephalic and Yes atraumatic Ears: hearing grossly normal bilaterally General nose exam: Normal external nose present Face and sinus: Yes normal facial exam Mouth: Normal oral and palatal mucosa present, oropharynx normal and moist mucous membranes Throat: Yes posterior oropharynx normal Eyes General: appearance normal, both eyes and all related structures Eyelids: Yes eyelids normal Conjunctivae: conjunctivae normal Sclerae: sclerae normal Pupils: Equal, round and reactive pupils present EOM: EOMs intact bilaterally Neck Neck: Yes normal visual inspection, Yes full ROM and Yes no lymphadenopathy Lymphatic: no lymphadenopathy noted Chest Chest palpation & inspection: normal inspection of the chest Resp Effort & Inspection: normal respiratory effort and able to speak in complete sentences Auscultation: clear to auscultation bilaterally, no crackles, no rales, no rhonchi and no wheezes Cardio Rate: regular rate Rhythm: regular rhythm Heart sounds: S1 normal heart sound present and S2 normal heart sound present GI Other: Abdomen is soft, nontender, nondistended Inspection: Yes normal to inspection Skin General skin exam: no rashes or lesions noted Trauma: no lacerations or abrasions Wounds: no wounds Neuro General: patient oriented x3 and moves all extremities Cranial nerves: Yes Equal, round and reactive pupils present Extrem General: Yes normal to inspection Right upper extremity: normal to inspection Left upper extremity: normal to inspection Right lower extremity: normal to inspection Left lower extremity: normal to inspection Medications Administered Discontinued Medications Generic Name Dose Route Start Last Admin Trade Name Freq PRN Reason Stop Dose Admin Sodium Chloride 1,000 mls @ 999 mls/hr 04/14/25 08:31 04/14/25 10:15 Ns IVCONT 04/14/25 09:31 Infused .Q1H1M ONE Infusion Acetaminophen 1,000 mg in 100 mls @ 400 mls/hr 04/14/25 08:31 04/14/25 09:32 Ofirmev IV 04/14/25 08:45 Infused ONCE ONE Infusion Ondansetron HCl 4 mg 04/14/25 08:31 04/14/25 09:17 Ondansetron Hcl 4 Mg/2 Ml Vial IVPUSH 04/14/25 08:32 4 mg ONCE ONE Administration Medical Decision Making Medical Decision Making [facility] Narrative: This is a 54-year-old male who presents emergency department with concerns for cough, headaches, body aches, chills, nausea and vomiting for the last 5 days. Patient initially presented to the emergency department at 5:00 a.m. this morning, he was not seen until 8:30 a.m. this morning. During my assessment, patient mildly hypertensive at 142/82, oxygen saturation 94% on room air, lungs are clear to auscultation bilaterally, patient is well-appearing under no acute distress. Abdomen is soft and nontender. He states that he has been unable to eat or drink secondary to nausea and vomiting. Infection is not suspected at this time. Labs were obtained prior to my assessment, he is slight leukopenia at 3.8 likely secondary to COVID, chemistry with no significant electrolyte derangement, he did test positive for COVID. His symptoms are consistent with COVID like infection. Awaiting official report for chest x-ray. EKG revealing no acute findings. Will medicate with IV fluids, IV Zofran and IV Tylenol and we will continue to monitor. Will repeat troponin. Course: 1036 - repeat troponin flat. Patient feeling much better after receiving IV fluids, IV Tylenol, and Zofran. He is eating and drinking without difficulty. Discussed overall workup with patient today. Chest x-ray reviewed by me, no acute consolidation seen. Will discharge with Zofran, Tylenol, and Tessalon. Given strict return precautions. He understands and agrees with plan. Patient stable for discharge. Differential Diagnosis Differential Diagnoses: The differential diagnosis associated with the presentation includes COVID, flu, RSV, electrolyte derangement Admission/Observation Consideration of admission/observation: Escalation of care including admission/observation considered Lab Data MDM Lab Attestation statement: I reviewed the patient's lab results. See MDM and course 04/14/25 05:30 04/14/25 05:30 Labs: Lab Results 04/14/25 04/14/25 04/14/25 Range/Units 05:26 05:30 09:13 WBC 3.8 L (4.8-10.8) X10*3/uL RBC 5.68 (4.60-5.80) X10*6/uL Hgb 17.3 (14.0-18.0) g/dl Hct 49.9 (42.0-52.0) % MCV 87.9 (80.0-98.0) fL MCH 30.5 (27.0-33.0) pg MCHC 34.7 (31.0-36.0) g/dl RDW 12.3 (11.0-16.0) % Plt Count 180 (160-400) X10*3/uL MPV 9.6 (9.4-12.4) fL Immature Gran % (Auto) 0.5 H (0.0-0.4) % Neut % (Auto) 77.9 H (45-73) % Lymph % (Auto) 6.4 L (20-40) % Potter % (Auto) 14.9 H (2-11) % Eos % (Auto) 0.0 (0-4) % Baso % (Auto) 0.3 (0-2) % Lymph # (Auto) 0.2 L (1.2-4.9) X10*3/uL Potter # (Auto) 0.6 (0.1-1.2) X10*3/uL Eos # (Auto) 0.0 (0.0-0.4) X10*3/uL Baso # (Auto) 0.0 (0.0-0.2) X10*3/uL Abs Immat Gran (auto) 0.02 (0.00-0.03) X10*3/uL Absolute Neuts (auto) 2.9 (2.0-8.3) x10*3/uL Absolute Nucleated RBC 0.000 (0.0-0.012) X10*3/uL Nucleated RBC % (auto) 0.0 (0.0-0.2) /100WBC Sodium 136 (135-145) mmol/L Potassium 3.8 (3.3-5.1) mmol/L Chloride 100 (96-108) mmol/L Carbon Dioxide 23 (22-29) mmol/L Anion Gap 17 (12-20) BUN 9 (9-16) mg/dL Creatinine 0.90 (0.5-1.4) mg/dL Estim Creat Clear Calc 84.6 Estimated GFR > 60 Random Glucose 104 (60-115) mg/dL Calcium 9.2 (8.4-10.2) mg/dL Total Bilirubin 0.6 (0.0-1.0) mg/dL AST 23 (5-37) U/L ALT 31 (0-40) U/L Alkaline Phosphatase 116 (39-117) U/L Troponin I High Sens 4.6 < 2.7 (<3.5-35.0) ng/L Total Protein 7.3 (6.5-8.0) g/dL Albumin 4.6 (3.5-5.0) g/dL Influenza Type A (PCR) NEGATIVE (Negative) Influenza Type B (PCR) NEGATIVE (Negative) RSV RNA Qual (PCR) NEGATIVE (Negative) SARS-CoV-2 RNA (RT-PCR) POSITIVE A (Negative) Independent Interpretation I performed an independent interpretation of an: EKG Interpretation: EKG normal sinus rhythm at a ventricular rate of 97 beats per minute, QT QTC 328/416, no ST elevation or depression. Similar-appearing EKG when compared to previous. Radiology Impression Discussion of test interpretation with radiology: I have reviewed the radiologist's reading. Radiologist Impression: LINICAL HISTORY: cp 1 view chest x-ray Comparison: CR/MT/SR - XR CHEST 2V - 01/02/24 21:02 EST Findings: The lungs are clear. Normal size heart. No acute fracture. IMPRESSION: 1. No acute findings. This document has been electronically signed by: Aline Duron MD on 04/14/2025 08:46:39 Dictated By: Aline Duron MD Discharge Plan Discharge Clinical Impression: COVID-19 Patient Disposition: Home, Self-Care Instructions: COVID-19 (Coronavirus Disease 2019) (ED), COVID-19: Slow the Coronavirus Spread (ED) Additional Instructions: You were seen in the emergency department and tested positive for COVID. Please drink plenty of fluids and get plenty of rest. Take Tylenol as prescribed for fevers and body aches. You can take 500 mg to a 1000 mg every 8 hours. Do not exceed more than 3000 mg in a 24 hour period. Take Zofran as needed for nausea and vomiting. Tessalon Perles are a medication that can help suppress the urgency to cough. Take this as needed. If any new or worsening symptoms occur including but not limited to severe chest pain, shortness of breath, please seek emergent care. COVID-19 stands for coronavirus disease 2019. It is caused by a virus called SARS-CoV-2. The virus first appeared in late 2019 and quickly spread around the world. Many people only have mild cold symptoms. Some people have digestive problems, like nausea or diarrhea. There have also been some reports of rashes or other skin symptoms. For most people, symptoms get better within a few days to weeks.? Some people with COVID-19 continue to have some symptoms for weeks or months.? Drink plenty of fluids and get plenty of rest. Take Tylenol and Motrin as needed for symptoms. If any new or worsening symptoms occur including but not limited to chest pain or shortness breath, please return for re-evaluation. What should I do if I have symptoms or test positive?If you have a fever, cough, cold symptoms, or other symptoms of COVID-19, get tested. You can use the flowchart to figure out when to test and what to do based on the results If you?test positive: ? Self-isolate for at least 5 days, even if you feel well. Self-isolation means staying apart from other people, even the people you live with. The 5 days should start the day?after?you first noticed symptoms or got a positive test result. If you have a weak immune system or if you still have a fever, you might need to self-isolate for longer than 5 days. ?After self-isolating for 5 days, wear a mask around all other people for at least 5 more days. Some people use antigen tests to decide how long to keep wearing the mask. If you do this, you can stop wearing a mask once you test negative on 2 antigen tests done at least 2 days apart. ?If your symptoms are severe, or if you are at risk for severe illness,?call?your doctor or nurse. They can tell you if you need to be seen. Depending on your situation, they might suggest treatment. Prescriptions: New benzonatate 100 mg capsule 100 mg PO TID 7 Days Qty: 21 0RF ondansetron HCl 4 mg tablet 4 mg PO Q6H PRN (Reason: nausea and vomiting) Qty: 12 0RF acetaminophen [Tylenol Extra Strength] 500 mg tablet 500 - 1,000 mg PO Q8H Qty: 30 0RF Interventions: ED Discharge Assessment Last Done: 04/14/25 11:07 Discharge Date/Time: 04/14/25 11:08 Print Language: [place]
[2025-04-14] MEDS: 0.9 % Sodium Chloride 1,000 ML 999 ML IVCONT (09:14)
[2025-04-14] MEDS: ondansetron HCL 4 MG/2 ML VIAL IVPUSH (09:17)
[2025-04-14] MEDS: Acetaminophen 1,000 MG/100 ML PIGGYBACK 400 MG IV (09:17)
--- NOTE | 2025-04-14 09:19 | PC.NURSE ---
pt a&ox3, vss, iv inserted, additional labs drawn, pt medicated per order, call reeder within reach, plan of care ongoing
[2025-04-14 09:52] LABS: Troponin-I High Sensitivity < 2.7 ng/L (<3.5-35.0)
[2025-04-14 10:03] VITALS: BP 121/82; PULSE 85; RESP 14; TEMP 36.9; O2SAT 95
--- NOTE | 2025-04-14 10:09 | PC.NURSE ---
pt states I feel much better, my headache is a 2/10 provider notified, pt to have po challange.
[2025-04-14 11:07] VITALS: BP 122/88; PULSE 88; RESP 16; TEMP 36.8; O2SAT 95
== END 2025-04-14 11:08 | disposition home or self-care (01) ==
PROVIDERS: Physician Assistant Medical; Emergency Provider Emergency Medicine
DX: U07.1 COVID-19 (principal); R07.9 Chest pain, unspecified
CPT/HCPCS: 0241U; 36415; 71045; 80053; 84484; 85025; 93005; 96361; 96374; 96375; 99284; 99285; J0131; J2405

== ENCOUNTER → 2025-04-14 05:30 | Outpatient (BNV) | payer MEDICAID, SELFPAY | PROVIDERS: Emergency Provider Emergency Medicine; Visit Provider Radiology Diagnostic Radiology | DX: R07.9 Chest pain, unspecified (principal) | CPT/HCPCS: 71045 ==